=== PATIENT | male | born 1960 | race Caucasian/White ===

== ENCOUNTER 2017-07-28 22:23 | Emergency (ER) | payer BC ==
[~2017-07-28] VITALS: Ht 188 cm; Wt 89.0 kg
[2017-07-28] MEDS ORDERED: HYDR4TAB48 PO (23:03)
[2017-07-29 00:25] VITALS: BP 136/63
== END 2017-07-29 00:32 | disposition home or self-care (01) ==
LOC: ED 23:34
DX: M79.662 Pain in left lower leg (principal)
CPT/HCPCS: 99284